=== PATIENT | female | born 1945 | race Asian ===

== ENCOUNTER 2023-10-19 20:09 | Inpatient (IN) | payer OTHER, MEDICAID ==
[~2023-10-19] VITALS: Ht 160 cm; Wt 75.7 kg
[2023-10-19 20:38] VITALS: BP_SYST 163; PULSE 91; RESP 16; TEMP 98.1; O2SAT 97
[2023-10-19] MEDS: MECLIZINE HCL 25 MG TABLET (ANITVERT) PO ONE (21:39)
[2023-10-19] MEDS: METOCLOPRAMIDE HCL 10 MG/2 ML VIAL IVP ONE (21:40)
[2023-10-19 21:43] LABS: EOSINOPHILS # (AUTO) 0.4 K/uL (0.0-0.4); HEMATOCRIT 39.6 % (36-48); HEMOGLOBIN 13.3 g/dL (12.0-16.0); LYMPHOCYTES # (AUTO) 1.5 K/uL (1.0-5.5); LYMPHOCYTES % (AUTO) 31.5 % (20.5-51.5); MEAN CORPUSCULAR HEMOGLOBIN 32 pg (27-31); MEAN CORPUSCULAR HGB CONC 34 % (32-36); MEAN CORPUSCULAR VOLUME 94 fL (79.0-98.0); MONOCYTES # (AUTO) 0.5 K/uL (0.0-1.0); MONOCYTES % (AUTO) 11.2 % (1.7-9.3); NEUTROPHILS # (AUTO) 2.3 K/uL (1.8-7.7); NEUTROPHILS % (AUTO) 48.3 % (40.0-70.0); PLATELET COUNT (AUTO) 148 K/uL (130-430); RED BLOOD CELL COUNT(AUTO) 4.22 MIL/uL (4.2-6.2); RED CELL DISTRIBUTION WIDTH 15.3 % (9.0-15.0); WHITE BLOOD COUNT (AUTO) 4.7 K/uL (4.8-10.8)
[2023-10-19] MEDS: ENALAPRILAT DIHYDRATE 1.25 MG/ML VIAL IVP ONE (21:58)
[2023-10-19 22:00] LABS: ANION GAP 4 (5-15); CALCIUM 8.6 mg/dL (8.4-11.0); CARBON DIOXIDE 30 mmol/L (23-29); CHLORIDE 101 mmol/L (98-107); GLUCOSE 311 mg/dL (74-106); POTASSIUM 4.2 mmol/L (3.5-5.1); SODIUM SERUM 135 mmol/L (136-145); UREA NITROGEN, BLOOD 52 mg/dL (8-21)
[2023-10-19 22:05] LABS: INR 2.5 (0.8-1.2); PROTHROMBIN TIME 24.9 SECS (9.5-12.5)
[2023-10-19 22:06] LABS: ALANINE AMINOTRANSFERASE 25 U/L (12-78); ALBUMIN 3.3 g/dL (3.4-4.8); ASPARTATE AMINOTRANSFERASE 23 U/L (10-37); BILIRUBIN,DIRECT 0.1 mg/dL (0.0-0.3); CREATINE KINASE, TOTAL 107 U/L (26-192); TOTAL BILIRUBIN 0.4 mg/dL (0.0-1.0); TOTAL PROTEIN, SERUM 7.7 g/dL (6.4-8.3)
[2023-10-19] MEDS: NACL 0.9% 1,000 ML IV ONE (23:29)
[2023-10-19] MEDS ORDERED: ACETAMINOPHEN 325 MG TABLET PO PRN (23:30)
[2023-10-19] MEDS ORDERED: HYDROcodone/ACETAMIN 10-325 MG TAB PO PRN (23:30)
[2023-10-19] MEDS ORDERED: ONDANSETRON HCL 4 MG/2 ML VIAL IVP PRN (23:30)
[2023-10-19] MEDS ORDERED: hydrALAZINE HCL 20 MG/ML VIAL IVP PRN (23:30)
[2023-10-19] MEDS ORDERED: HYDROcodone/ACETAMIN 5-325 MG TAB (NORCO/ VICODIN) PO PRN (23:30)
[2023-10-20] VITALS (7 sets, daily range): BP systolic 112–155; PULSE 76–100; RESP 16–18; TEMP 96.3–98.5; O2SAT 95–97
[2023-10-20] MEDS: 0.45% NACL 1,000 ML IV SCH (01:32)
[2023-10-20] MEDS ORDERED: AMLO5TAB4 PO (01:51)
[2023-10-20] MEDS ORDERED: PIOG15TA8 PO (01:51)
[2023-10-20] MEDS ORDERED: GLIP10TA11 PO (01:51)
[2023-10-20] MEDS ORDERED: METO25TA6 PO (01:51)
[2023-10-20] MEDS ORDERED: LIP40 PO (01:51)
[2023-10-20] MEDS ORDERED: WARF3TAB59 PO (01:51)
[2023-10-20] MEDS ORDERED: INSULIN LISPRO SLIDING SCALE 100 UNITS/ML, 3 ML VIAL (humaLOG) SUBCUT PRN (07:30)
[2023-10-20] MEDS ORDERED: DEXTROSE 50% JECT 50 ML DISP.SYRIN IVP PRN ×2 (07:30→12:45)
[2023-10-20] MEDS ORDERED: METO25TA3 PO (07:55)
[2023-10-20] MEDS: METOPROLOL SUCCINATE 25 MG TAB.SR.24H (TOPROL XL) PO SCH (08:36)
[2023-10-20] MEDS: amLODIPine BESYLATE 5 MG TABLET PO SCH (08:37)
[2023-10-20 10:13] LABS: BASOPHILS # (AUTO) 0.1 K/uL (0.0-0.2); BASOPHILS % (AUTO) 1.1 % (0.0-2.0); EOSINOPHILS # (AUTO) 0.3 K/uL (0.0-0.4); EOSINOPHILS % (AUTO) 7.1 % (0.0-4.0); HEMATOCRIT 41.3 % (36-48); HEMOGLOBIN 13.9 g/dL (12.0-16.0); LYMPHOCYTES # (AUTO) 1.1 K/uL (1.0-5.5); LYMPHOCYTES % (AUTO) 22.2 % (20.5-51.5); MEAN CORPUSCULAR HEMOGLOBIN 32 pg (27-31); MEAN CORPUSCULAR HGB CONC 34 % (32-36); MEAN CORPUSCULAR VOLUME 94 fL (79.0-98.0); MONOCYTES # (AUTO) 0.4 K/uL (0.0-1.0); MONOCYTES % (AUTO) 8.6 % (1.7-9.3); PLATELET COUNT (AUTO) 158 K/uL (130-430); RED CELL DISTRIBUTION WIDTH 15.2 % (9.0-15.0); WHITE BLOOD COUNT (AUTO) 4.9 K/uL (4.8-10.8)
[2023-10-20 10:41] LABS: HEMOGLOBIN A1C 7.85 % (<5.7)
[2023-10-20] MEDS ORDERED: MECL-292 PO (10:42)
[2023-10-20 10:48] LABS: ANION GAP 8 (5-15); CALCIUM 8.8 mg/dL (8.4-11.0); CARBON DIOXIDE 27 mmol/L (23-29); CHLORIDE 105 mmol/L (98-107); CREATININE 1.66 mg/dL (0.55-1.30); GLUCOSE 209 mg/dL (74-106); PHOSPHORUS 3.3 mg/dL (2.7-4.5); POTASSIUM 4.3 mmol/L (3.5-5.1); SODIUM SERUM 140 mmol/L (136-145); THYROID STIMULATING HORMONE 3.09 uIu/mL (0.34-4.82); UREA NITROGEN, BLOOD 40 mg/dL (8-21)
[2023-10-20 12:14] LABS: BILIRUBIN,URINE NEGATIVE (NEGATIVE); CLARITY/URINE CLEAR (CLEAR); COLOR,URINE YELLOW (YELLOW); GLUCOSE,URINE NEGATIVE (NEGATIVE); KETONES,URINE NEGATIVE (NEGATIVE); LEUKOCYTE ESTERASE ,URINE 1+ (NEGATIVE); NITRITE, URINE NEGATIVE (NEGATIVE); PROTEIN URINE 1+ (NEGATIVE); UROBILINOGEN,URINE 0.2 (0.2-1.0)
[2023-10-20 12:15] LABS: BLOOD, URINE TRACE (NEGATIVE)
[2023-10-20 12:30] LABS: BACTERIA,URINE FEW /HPF (None Seen); MUCUS,URINE 1+ /LPF (None Seen)
[2023-10-20] MEDS ORDERED: HYDROcodone/ACETAMIN 5-325 MG TAB (NORCO/ VICODIN) PO PRN (12:30)
[2023-10-20] MEDS ORDERED: ACETAMINOPHEN 325 MG TABLET PO PRN ×2 (12:30→12:45)
[2023-10-20] MEDS ORDERED: NALOXONE HCL 0.4 MG/ML AMP (NARCAN) IVP PRN (12:30)
[2023-10-20] MEDS ORDERED: HYDROcodone/ACETAMIN 10-325 MG TAB PO PRN (12:30)
[2023-10-20] MEDS ORDERED: ONDANSETRON HCL 4 MG/2 ML VIAL IVP PRN (12:30)
[2023-10-20] MEDS ORDERED: MORPHINE 2 MG/ML INJ. SYRINGE IVP PRN (12:30)
[2023-10-20] MEDS ORDERED: GLUCOSE (DEXTROSE) ORAL GEL -Adults PO PRN (12:45)
[2023-10-20] MEDS ORDERED: amLODIPine BESYLATE 5 MG TABLET PO ONE (13:00)
[2023-10-20] MEDS: ATORVASTATIN 20 MG TABLET PO ONE (13:21)
[2023-10-20] MEDS: METOPROLOL SUCCINATE 25 MG TAB.SR.24H (TOPROL XL) PO ONE (13:21)
[2023-10-20 14:46] LABS: INR 2.6 (0.8-1.2)
[2023-10-20] MEDS: MECLIZINE HCL 25 MG TABLET (ANITVERT) PO SCH (15:00)
[2023-10-20] MEDS: INSULIN REGULAR, HUMAN 100 UNITS/ML, 3 ML VIAL (humuLIN R) SUBCUT PRN (18:42)
[2023-10-20] MEDS: WARFARIN SODIUM 2 MG TABLET PO SCH (18:45)
[2023-10-20] MEDS: NACL 0.9% 1,000 ML IV SCH (20:24)
[2023-10-21] VITALS: BP_SYST 138; PULSE 88; RESP 16; TEMP 97.1; O2SAT 98
[2023-10-21 05:51] LABS: BASOPHILS % (AUTO) 0.8 % (0.0-2.0); EOSINOPHILS # (AUTO) 0.3 K/uL (0.0-0.4); EOSINOPHILS % (AUTO) 6.7 % (0.0-4.0); HEMOGLOBIN 13.6 g/dL (12.0-16.0); LYMPHOCYTES # (AUTO) 1.6 K/uL (1.0-5.5); LYMPHOCYTES % (AUTO) 33.9 % (20.5-51.5); MEAN CORPUSCULAR HEMOGLOBIN 32 pg (27-31); MEAN CORPUSCULAR HGB CONC 34 % (32-36); MEAN CORPUSCULAR VOLUME 94 fL (79.0-98.0); MONOCYTES # (AUTO) 0.4 K/uL (0.0-1.0); MONOCYTES % (AUTO) 8.6 % (1.7-9.3); NEUTROPHILS # (AUTO) 2.4 K/uL (1.8-7.7); PLATELET COUNT (AUTO) 149 K/uL (130-430); RED BLOOD CELL COUNT(AUTO) 4.27 MIL/uL (4.2-6.2); WHITE BLOOD COUNT (AUTO) 4.7 K/uL (4.8-10.8)
[2023-10-21 06:35] LABS: PROTHROMBIN TIME 29.3 SECS (9.5-12.5)
[2023-10-21 07:02] LABS: ALANINE AMINOTRANSFERASE 24 U/L (12-78); ANION GAP 8 (5-15); ASPARTATE AMINOTRANSFERASE 24 U/L (10-37); CALCIUM 8.6 mg/dL (8.4-11.0); CARBON DIOXIDE 25 mmol/L (23-29); CHLORIDE 106 mmol/L (98-107); CREATININE 1.72 mg/dL (0.55-1.30); GLUCOSE 138 mg/dL (74-106); POTASSIUM 4.1 mmol/L (3.5-5.1); SODIUM SERUM 139 mmol/L (136-145); TOTAL BILIRUBIN 0.5 mg/dL (0.0-1.0); TOTAL PROTEIN, SERUM 7.1 g/dL (6.4-8.3); UREA NITROGEN, BLOOD 36 mg/dL (8-21)
[2023-10-21 08:29] VITALS: BP_SYST 132; PULSE 62; RESP 18; TEMP 96.8; O2SAT 98
[2023-10-21] MEDS: ATORVASTATIN 20 MG TABLET PO SCH (08:31)
[2023-10-21] MEDS: METOPROLOL SUCCINATE 25 MG TAB.SR.24H (TOPROL XL) PO SCH (08:31)
[2023-10-21] MEDS ORDERED: amLODIPine BESYLATE 5 MG TABLET PO SCH (09:00)
[2023-10-21 11:02] VITALS: BP_SYST 150; PULSE 81; RESP 15; TEMP 97.5; O2SAT 96
[2023-10-21 16:16] VITALS: BP_SYST 143; PULSE 80; RESP 15; TEMP 97.9; O2SAT 96
[2023-10-21] MEDS: WARFARIN SODIUM 1 MG TABLET PO SCH (17:41)
[2023-10-21 20:35] VITALS: BP_SYST 112; PULSE 84; RESP 17; TEMP 97.5; O2SAT 97
[2023-10-22] VITALS: BP_SYST 118; PULSE 74; RESP 16; TEMP 97.8; O2SAT 97
[2023-10-22 06:44] LABS: BASOPHILS % (AUTO) 1.1 % (0.0-2.0); EOSINOPHILS # (AUTO) 0.4 K/uL (0.0-0.4); EOSINOPHILS % (AUTO) 9.4 % (0.0-4.0); HEMATOCRIT 40.9 % (36-48); HEMOGLOBIN 13.8 g/dL (12.0-16.0); LYMPHOCYTES # (AUTO) 1.4 K/uL (1.0-5.5); LYMPHOCYTES % (AUTO) 34.3 % (20.5-51.5); MEAN CORPUSCULAR HEMOGLOBIN 31 pg (27-31); MEAN CORPUSCULAR HGB CONC 34 % (32-36); MEAN CORPUSCULAR VOLUME 93 fL (79.0-98.0); MONOCYTES # (AUTO) 0.4 K/uL (0.0-1.0); MONOCYTES % (AUTO) 10.2 % (1.7-9.3); NEUTROPHILS # (AUTO) 1.9 K/uL (1.8-7.7); PLATELET COUNT (AUTO) 156 K/uL (130-430); RED BLOOD CELL COUNT(AUTO) 4.41 MIL/uL (4.2-6.2); RED CELL DISTRIBUTION WIDTH 14.9 % (9.0-15.0); WHITE BLOOD COUNT (AUTO) 4.2 K/uL (4.8-10.8)
[2023-10-22 07:07] LABS: INR 3.1 (0.8-1.2); PROTHROMBIN TIME 30.7 SECS (9.5-12.5)
[2023-10-22 07:12] LABS: ANION GAP 8 (5-15); CARBON DIOXIDE 26 mmol/L (23-29); CHLORIDE 106 mmol/L (98-107); GLUCOSE 131 mg/dL (74-106); SODIUM SERUM 140 mmol/L (136-145); UREA NITROGEN, BLOOD 38 mg/dL (8-21)
[2023-10-22 07:44] VITALS: BP_SYST 156; PULSE 89; RESP 14; TEMP 97.7; O2SAT 96
[2023-10-22] MEDS ORDERED: CYCL10TA24 PO (09:11)
[2023-10-22] MEDS: CYCLOBENZAPRINE HCL 10 MG TABLET (FLEXERIL) PO SCH (09:42)
[2023-10-22 09:54] VITALS: BP_SYST 156; PULSE 89; RESP 16; TEMP 97.7; O2SAT 98
[2023-10-26 11:07] LABS: WEST NILE VIRUS, IgG, SERUM Negative (Negative)
== END 2023-10-22 10:20 | disposition home or self-care (01) | DRG 640 ==
LOC: SED 20:09 → STU 23:24
PROVIDERS: ADMIT Internal Medicine; ATTEND Family Medicine
DX: E86.0 Dehydration (principal); N17.0 Acute kidney failure with tubular necrosis; E44.1 Mild protein-calorie malnutrition; I16.9 Hypertensive crisis, unspecified; I48.20 Chronic atrial fibrillation, unspecified; E87.1 Hypo-osmolality and hyponatremia; E11.65 Type 2 diabetes mellitus with hyperglycemia; I12.9 Hypertensive chronic kidney disease with stage 1 through stage 4 chronic kidney disease, or unspecified chronic kidney disease; E11.22 Type 2 diabetes mellitus with diabetic chronic kidney disease; N18.9 Chronic kidney disease, unspecified; Z86.73 Personal history of transient ischemic attack (TIA), and cerebral infarction without residual deficits; Z79.899 Other long term (current) drug therapy; Z68.29 Body mass index [BMI] 29.0-29.9, adult; Z90.710 Acquired absence of both cervix and uterus; Z88.0 Allergy status to penicillin
CPT/HCPCS: 36415; 70450-TC; 71045; 72040; 76770; 80048; 80053; 80076; 81000; 81001; 81015; 82550; 82948; 83037; 83735; 84100; 84443; 84484; 85025; 85610; 85730; 86788; 86789; 93005; 93306; 96361; 96374; 97112-GP; 97116-GP; 99285; G0378; J1815; J2765; J8597